=== PATIENT | female | born 1945 | race Caucasian/White ===

== ENCOUNTER 2022-09-26 12:08 | Emergency (ER) | payer MEDICARE, BC ==
--- NOTE | 2022-09-26 12:33 | ED Physician Documentation ---
PD HPI Fall - Stated complaint Stated Complaint: FALL - Chief complaint Chief Complaint: Trauma Hd/Nk - History obtained from History obtained from: Patient - History of Present Illness Mechanism of injury: Tripped (walking her dog on a leash and the dog pulled abruptly when another dog approached. This pulled pt off balance, and she spun and fell, striking back of head. Dazed few seconds and some blurred vision. Feels slow thinking. Hematoma back of head.) Fall distance: Standing position Where injury occurred: Street Timing - onset: Today Injury(ies) location: Head, Neck Quality of pain: Pain, Aching Associated symptoms: No: LOC (but dazed several seconds) Worsens with: Palpation Contributing factors: No: Anticoagulated Review of Systems Constitutional: denies: Fever, Chills Eyes: reports: Decreased vision (she feel alyssa vision is slightly blurry.) Nose: denies: Rhinorrhea / runny nose, Congestion Throat: denies: Sore throat Respiratory: denies: Cough Skin: denies: Abrasion (s), Laceration (s) Neurologic: denies: Focal weakness, Numbness PD PAST MEDICAL HISTORY - Past Medical History Cardiovascular: None Neuro: None - Allergies Allergies/Adverse Reactions: Allergies Allergy/AdvReac Type Severity Reaction Status Date / Time Penicillins Allergy Hives Verified 09/26/22 12:25 PD ED PE NORMAL - Vitals Vital signs reviewed: Yes - General General: Alert and oriented X 3, No acute distress, Well developed/nourished - HEENT HEENT: PERRL, EOMI - Neck Neck: Supple, no meningeal sign, No bony TTP (but has some tender lower cervical level to sides. There is swelling with tenderness locally in occipital scalp. NO lacerations. ) Results - Vitals Vitals: Oxygen O2 Source Room air - Rads (name of study) head CT Relevant Findings:: Prelim report reviewed, EMP independent interpretation of test (no ICH nor acute injury noted. ), See rad report cervical Spine Relevant Findings:: Prelim report reviewed (no fractures nor acute injury. ), EMP independent interpretation of test PD Medical Decision Making - ED course Complexity details: reviewed results (head and neck CT without acute injury (other than scalp hematoma).), considered differential (fell and struck head with brief dazed, blurred vision, some nausea, and feeling slow on thuought process. Symptoms c/w mild concussion. Will get CT to ensure no ICH/fx/ other acute injury. ), d/w patient Departure - Departure Disposition: 01 Home, Self Care Clinical Impression: Accidental fall, Scalp contusion, Mild concussion, Neck muscle strain Condition: Stable Record reviewed to determine appropriate education?: Yes Instructions: ED Concussion, ED Hematoma Comments: Your CT scan of the head and neck are good without any signs of bleeding, fractures, acute injury. The hematoma in the scalp is identified. Your symptoms do sound like mild concussion. I would anticipate some degree of headache and slight blurred vision, slow cognitively and is perhaps some balance disorder over 2 or 3 days. Occasionally can be a week or 2 but fairly less common. Tylenol or ibuprofen if needed for pains. Light activity over the next couple of days. Follow-up with your primary care if not in proved well over the next several days or so. Return if worse. Discharge Date/Time: 09/26/22 15:39
[2022-09-26] MEDS ORDERED: ACETAMINOPHEN 325 MG TABLET PO STA (13:03)
[2022-09-26] MEDS ORDERED: IBUPROFEN 600 MG TABLET PO STA (13:04)
--- NOTE | 2022-09-26 14:34 | CT Report ---
PROCEDURE: HEAD WO INDICATIONS: fell, struck head - head/neck pain TECHNIQUE: Noncontrast 4.5 mm thick angled axial sections acquired from the foramen magnum to the vertex. For r adiation dose reduction, the following was used: automated exposure control, adjustment of mA and/or kV according to patient size. COMPARISON: None. FINDINGS: Image quality: Excellent. CSF spaces: Basal cisterns are patent. No extra-axial fluid collections. Ventricles are normal in size and shape. Brain: No midline shift. No intracranial masses or hemorrhage. No area of hypodensity in a vascula r distribution to suggest acute infarction. 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 Age-related parenchymal loss. Skull and face: Moderate sized posterior scalp hematoma. Calvarium and visualized facial bones are i ntact, without suspicious lesions. Sinuses: Visualized sinuses and mastoids are clear. IMPRESSION: No acute intracranial abnormality. Moderate size posterior scalp hematoma. Reviewed by: Sixto Geronimo MD on 09/26/2022 2:33 PM PDT Approved by: Sixto Geronimo MD on 09/26/2022 2:33 PM PDT Station ID: [id number]
--- NOTE | 2022-09-26 14:35 | CT Report ---
PROCEDURE: CERVICAL SPINE WO INDICATIONS: fell, struck head - head/neck pain TECHNIQUE: Noncontrast 3 mm thick sections acquired from the skull base to the T4 level. Sagittal and coronal r eformats were then constructed. For radiation dose reduction, the following was used: automated exp osure control, adjustment of mA and/or kV according to patient size. COMPARISON: None. FINDINGS: Image quality: Excellent. Bones: No fractures or dislocations. Moderate degenerative change. Visualized superior ribs are int act. Soft tissues: Prevertebral soft tissues are normal in thickness. Moderate plaque at the left carotid bulb. No paravertebral hematomas. No apical pneumothoraces. IMPRESSION: No acute osseous abnormality. Reviewed by: Sixto Geronimo MD on 09/26/2022 2:34 PM PDT Approved by: Sixto Geronimo MD on 09/26/2022 2:34 PM PDT Station ID: [id number]
[2022-09-26 14:44] VITALS: BP 168/58
== END 2022-09-26 15:39 | disposition home or self-care (01) ==
LOC: ED 12:08
DX: S00.03XA Contusion of scalp, initial encounter (principal); S06.0X0A Concussion without loss of consciousness, initial encounter; S16.1XXA Strain of muscle, fascia and tendon at neck level, initial encounter; W01.0XXA Fall on same level from slipping, tripping and stumbling without subsequent striking against object, initial encounter; Y93.K1 Activity, walking an animal; Y92.410 Unspecified street and highway as the place of occurrence of the external cause
CPT/HCPCS: 70450; 72125; 99283; 99284; A9270

== ENCOUNTER 2023-06-02 18:44 | Outpatient (CLI) | payer MEDICARE, BC ==
--- NOTE | 2023-06-03 18:43 | Ultrasound Report ---
PROCEDURE: Carotid Doppler Complete INDICATIONS: CAROTID ARTERY STENOSIS TECHNIQUE: Color and pulse Doppler interrogation was performed of both carotid systems, with image documentation and velocity measurements. COMPARISON: CT cervical spine September 26, 2022. FINDINGS: Markedly limited exam secondary to patient body habitus, plaque and tortuosity. Right side: Brachial blood pressure: 171 mm Hg. Common carotid artery peak systolic velocity: 40.4 cm/sec. Internal carotid artery peak systolic velocity: 119.2 cm/sec. Internal carotid artery end diastolic velocity: 33.6 cm/sec. External carotid artery peak systolic velocity: 32.4 cm/sec. ICA/CCA peak systolic ratio: 2.9 . [place] scale imaging description: Suboptimally evaluated with possible soft plaque. Percent internal carotid artery stenosis: 50-69 percent stenosis. Vertebral artery: Flow direction is antegrade. Left side: Brachial blood pressure: 159 mm Hg. Common carotid artery peak systolic velocity: 48.7 cm/sec. Internal carotid artery peak systolic velocity: 57.5 cm/sec. Internal carotid artery end diastolic velocity: 22.5 cm/sec. External carotid artery peak systolic velocity: 33.8 cm/sec. ICA/CCA peak systolic ratio: 1.2 . [place] scale imaging description: Suboptimally evaluated with possible soft plaque. Percent internal carotid artery stenosis: Less than 50 percent stenosis. Vertebral artery: Flow direction is antegrade. IMPRESSION: Markedly limited exam secondary to patient body habitus, plaque and tortuosity. The CT cervical spine dated September 26, 2022 demonstrated mild calcification at the left carotid bulb and no atherosclerotic calcification of the right carotid vessel; however, evaluation for soft plaque is limited. If clinica l symptoms persist, consider a CTA of the neck for further evaluation. 1. In the right internal carotid artery, there is 50-69% stenosis based on the elevated ratio. This m ay be falsely elevated in the setting of vessel tortuosity. 2. In the left internal carotid artery, t here is less than 50 percent stenosis based on peak systolic velocity criteria. 3. Antegrade blood flow within the right vertebral artery. 4. Antegrade blood flow within the left vertebral artery. The estimate of stenosis included in the report of the imaging study was calculated using the [facility]-end orsed standards of carotid artery stenosis. Reviewed by: Ning Hamilton MD on 06/03/2023 6:42 PM PDT Approved by: Ning Hamilton MD on 06/03/2023 6:42 PM PDT Station ID: [id number]
== END 2023-06-02 18:45 | disposition home or self-care (01) ==
LOC: DI 18:44
PROVIDERS: ATTEND Internal Medicine
DX: I65.21 Occlusion and stenosis of right carotid artery (principal); I77.9 Disorder of arteries and arterioles, unspecified; E03.9 Hypothyroidism, unspecified; R42 Dizziness and giddiness
CPT/HCPCS: 93880